=== PATIENT | female | born 2000 | race Hispanic/Latino ===

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

== ENCOUNTER 2024-06-27 10:56 | Emergency (ER) | payer BC, OTHER ==
[2024-06-27] MEDS ORDERED: Acetaminophen 500 MG TAB ONE (11:23)
== END 2024-06-27 12:55 | disposition home or self-care (01) ==
LOC: ERS 10:56
DX: M54.2 Cervicalgia (principal); M54.50 Low back pain, unspecified; V89.2XXA Person injured in unspecified motor-vehicle accident, traffic, initial encounter; Y93.89 Activity, other specified
CPT/HCPCS: 70450; 72125